=== PATIENT | male | born 1945 | race Caucasian/White ===

== ENCOUNTER 2021-02-13 08:09 | Outpatient (CLI) | payer MEDICARE, SELFPAY ==
--- NOTE | 2021-02-13 11:46 | WPDSIXMINUTE ---
Six Minute Walk Procedure Procedure Performed Pulmonary Stress Test (6 min walk) Six Minute Walk This is a 6 minutes walk test. The test was performed and interpreted in accordance with the 2014 ERS/ATS task force guidelines. the test was performed on the patient's home setting of 2 L oxygen nasal cannula. Findings: The patient's resting saturation on 2 L NC measured by pulse oximetry was 96% and her heart rate was 67 bpm. Patient ambulated for 122 meters and oxygen saturation remained 94 to 98%. Heart rate at the end of the study was 95 bpm. There are no prior studies for comparison.
== END 2021-02-13 08:10 | disposition home or self-care (01) ==
PROVIDERS: PCP Internal Medicine; Visit Provider Nurse Practitioner Family
DX: R09.02 Hypoxemia (principal)
CPT/HCPCS: 94618

== ENCOUNTER 2021-06-21 14:30 | Outpatient (RCR) | payer MEDICARE, SELFPAY ==
[2021-04-13 10:16] VITALS: BMI 40.6
[2021-04-13 10:21] VITALS: BMI 40.6
== END 2021-07-03 10:24 | disposition home or self-care (01) ==
LOC: ANHDMC 14:30
PROVIDERS: PCP Internal Medicine; Visit Provider Internal Medicine
DX: E11.9 Type 2 diabetes mellitus without complications (principal); Z71.3 Dietary counseling and surveillance; Z71.89 Other specified counseling
CPT/HCPCS: 97802; 99199; G0108; G0109

== ENCOUNTER 2021-08-22 12:57 | Outpatient (RCR) | payer MEDICARE, SELFPAY | END 2021-08-22 14:57 | disposition home or self-care (01) | LOC: ANHDMC 12:57 | PROVIDERS: PCP Internal Medicine; Visit Provider Internal Medicine | DX: E11.9 Type 2 diabetes mellitus without complications (principal); Z71.89 Other specified counseling | CPT/HCPCS: G0108 ==

== ENCOUNTER → 2021-08-26 08:42 | Outpatient (CLI) | payer MEDICARE, SELFPAY ==
--- NOTE | ~2021-08-26 | MR_ITS ---
EXAMINATION: MR thoracic spine wo con EXAM DATE: 08/26/2021 12:06 INDICATION: chronic thoracic back pain, no trauma, no ca. TECHNIQUE: Multi-sequential, multiplanar MR images of the thoracic spine were obtained without contra st. Sagittal T1, T2, T2 fat saturation, axial T2 weighted images reviewed. There is no prior study for comparison. FINDINGS: There is mild to moderate mid thoracic dextroscoliosis. There is moderate to severe loss of mid thoracic disc height, moderate loss of lower thoracic disc height. Mild diffuse loss of vertebra l body height. The spinal cord signal intensity and intrinsic morphology is normal. There are no susp icious marrow signal abnormalities. Paraspinal soft tissue is unremarkable. Mild to moderate overall thoracic facet arthropathy. There are small disc bulges and protrusions at most of the levels, some i ndent the anterior aspect of the spinal cord but there is no cord edema suspected. No more than mild central canal stenosis at any given level. No evidence of discitis or osteomyelitis. Motion limiting axial images, level by level evaluation. There is moderate T8-9 and T10-11. These are the most narrowed levels of the thoracic spine. IMPRESSION: 1. Overall moderate thoracic spondylosis. 2. Mild to moderate dextroscoliosis. Reviewed, dictated and finalized at location . TYPE MECHANIC
== END ==
PROVIDERS: Visit Provider Nurse Practitioner Adult Health
DX: M54.6 Pain in thoracic spine (principal); M47.814 Spondylosis without myelopathy or radiculopathy, thoracic region; M41.84 Other forms of scoliosis, thoracic region
CPT/HCPCS: 72146

== ENCOUNTER 2022-01-11 14:15 | Outpatient (CLI) | payer MEDICARE, SELFPAY ==
[2022-01-11 14:47] LABS: Basophils Percent Auto 0.5 % (0.2-1.2); Eosinophils Absolute Auto 0.3 K/mm3 (0-0.3); Eosinophils Percent Auto 4.1 % (0-4.4); Hematocrit 34.3 % (42.0-52.0); Hemoglobin 10.7 g/dL (14.0-18.0); Immature Granulocyte Absolute 0.01 K/mm3 (0.00-0.031); Immature Granulocyte Percent A 0.1 % (0-0.5); Lymphocytes Absolute Auto 2.86 K/mm3 (0.9-3.2); Lymphocytes Percent Auto 35.9 % (18.3-44.2); Mean Corpuscular HGB Conc 31.2 g/dl (32-36); Mean Corpuscular Volume 96.1 fl (80-100); Mean Platelet Volume 9.5 fl (7.4-10.4); Monocytes Absolute Auto 0.7 K/mm3 (0.1-0.6); Monocytes Percent Auto 8.7 % (2.6-8.5); Neutrophils Percent Auto 50.7 % (45.5-73.1); Platelet Count Result 242 k/mm3 (150-375); Red Blood Count 3.57 M/mm3 (4.6-6.20); Red Cell Distribution Width 14.6 % (11.5-14.5)
[2022-01-11 14:49] LABS: Add Urine Microscopic? YES; Appearance Urine Clear (Clear); Bilirubin Urine Negative (Negative); Blood Urine Negative (Negative); Color Urine Yellow (Yellow); Glucose Urine UA Negative (Negative); Ketones Urine Negative (Negative); Leukocyte Esterase Ur Trace LEU/UL (Negative); Nitrate Urine Negative (Negative); Protein Urine Negative (Negative); Urobilinogen Urine 0.2 mg/dL (<2.0); pH Urine 5.5 (5.0-9.0)
--- NOTE | 2022-01-11 15:05 | ECG_ITS ---
Measurements Intervals [place] Rate: 79 P: 43 LA: 186 QRS: -59 QRSD: 161 T: 53 QT: 402 QTc: 463 Interpretive Statements SINUS RHYTHM LEFTWARD AXIS RIGHT BUNDLE BRANCH BLOCK [120+ ms QRS DURATION, UPRIGHT V1, 40+ ms S IN I/aVL/V4/V5/V6] LEFT ANTERIOR FASCICULAR BLOCK [QRS AXIS <= -45, QR IN I, RS IN II] ABNORMAL ECG NO PREVIOUS ECG AVAILABLE FOR COMPARISON Electronically Signed On 01-12-2022 16:34:29 CDT by Pastor Bear M.D.
[2022-01-11 15:08] LABS: Bacteria Urine Trace /hpf; Mucus Urine Rare /lpf; RBC Urine 0-2 /hpf (0-2); Squamous Epithelial Cell Urine Occasional /hpf (Few)
[2022-01-11 15:15] LABS: Anion Gap 7 mmol/L (8-16); Blood Urea Nitrogen 15 mg/dL (9-20); Calcium 8.5 mg/dL (8.4-10.2); Carbon Dioxide 29 mmol/L (22-30); Chloride 102 mmol/L (98-107); Estimated Glomerular Filt Rate > 60; Glucose 82 mg/dL (65-110); Potassium 4.2 mmol/L (3.4-5.0); Sodium 138 mmol/L (137-145)
[2022-01-11 15:24] LABS: Erythrocyte Sedimentation Rate 42 mm/hr (0-20)
== END 2022-01-11 14:16 | disposition home or self-care (01) ==
PROVIDERS: PCP Internal Medicine; Visit Provider Nurse Practitioner Family
DX: Z01.818 Encounter for other preprocedural examination (principal); I45.2 Bifascicular block
CPT/HCPCS: 36415; 80048; 81001; 85025; 85652; 86140; 93005

== ENCOUNTER 2024-03-02 09:16 | Outpatient (CLI) | payer MEDICARE, SELFPAY ==
--- NOTE | 2024-03-02 09:44 | ECG_ITS ---
Test Date: 2024-03-02 09:56:20 Measurements Intervals [place] Rate: 77 P: 18 IA: 174 QRS: -81 QRSD: 156 T: -9 QT: 405 QTc: 460 Interpretive Statements SINUS RHYTHM RIGHT BUNDLE BRANCH BLOCK [120+ ms QRS DURATION, UPRIGHT V1, 40+ ms S IN I/aVL/V4/V5/V6] LEFT ANTERIOR FASCICULAR BLOCK [QRS AXIS <= -45, QR IN I, RS IN II] ABNORMAL ELECTROCARDIOGRAM No previous ECG available for comparison Electronically Signed On 03-02-2024 12:35:09 CDT by Pastor Bear M.D.
== END 2024-03-02 09:17 | disposition home or self-care (01) ==
LOC: ANHSURGERY 09:20
PROVIDERS: PCP Internal Medicine; Visit Provider Urology
DX: Z01.818 Encounter for other preprocedural examination (principal); E11.9 Type 2 diabetes mellitus without complications; I10 Essential (primary) hypertension
CPT/HCPCS: 93005

== ENCOUNTER 2024-03-03 01:42 | Day surgery (SDC) | payer MEDICARE, SELFPAY ==
[2024-02-28 08:58] VITALS: BMI 34.2
--- NOTE | 2024-02-28 09:39 | PC.NURSE ---
Report to the Outpatient Waiting Room, entrance under the green pavilion located off [facility], at time __8:00AM on date __03/03/24 . Planned Procedure Time: _10:00AM . Time changes happen often and if your time is changed the preop area will call you the afternoon before. - You and your visitor will be asked to self-screen and do not enter if you have any COVID symptoms. - A mask is optional within the hospital at this time. Patients may have clear liquids (water, carbonated beverages, clear teas, apple juice) until 3 hours prior to surgery with a maximum of 20 ounces. - No food from midnight until time of surgery. Take the following medications with a SIP of water the morning of surgery: _BREO ELLIPTA AND SPIRIVA INHALERS. MAY USE ALBUTEROL INHALER NEEDED. MORNING OF SURGERY TAKE: BUPROPION(WELLBUTRIN), DOXAZOSIN(CARDURA), ESCITALOPRAM(LEXAPRO), GABAPENTIN, NEBIVOLOL(BYSTOLIC), OXYCODONE(XTAMPZA). DO NOT STOP ANY OF YOUR OTHER PRESCRIPTION MEDICATIONS PRIOR TO SURGERY ?EXCEPT THE FOLLOWING Medications to discontinue per physician ___HOLD XERALTO & PLAVIX 5 DAYS PRE-OP PER DR ORTIZ/PER PATIENT- LAST DOSE 02/26/24 HOLD ALL VITAMINS/SUPPLEMENTS 3 DAYS PRE-OP PER ANESTHESIA- LAST DOSE 02/28/24. Date to take last dose Please no make-up, nail omani, hairspray, perfume, deodorant, or body powder the day of surgery. No jewelry (including any body piercings) or valuables the day of surgery, leave them at home. Please take a shower or bath the night before, or the morning of, surgery with an antibacterial soap. Wear comfortable, loose fitting clothing. - Jewelry must be removed prior to entering the operating room. Rings and piercings that are not removed may be cut off. - The hospital will not accept responsibility for valuables. - Please leave all valuables, including medications, at home the day of surgery. If you are going home after surgery, a licensed transfer driver must drive you home. - NO public transportation without another adult if you receive anesthesia. - We recommend that an adult stay with you for 24 hours following discharge. - We also recommend that you do not drive, make important decision, drink alcoholic beverages, or take any drugs that were not prescribed by your health care provider for at least 24 hours after your discharge time. Follow any additional instructions given to you from your surgeon. If you or anyone in your household have experienced Covid symptoms in the past week, please notify your surgeon or the nurse liaison at the phone number below for possible testing. Telephone instructions given to ____PATIENT and asked if any additional questions and then verbalized understanding. Patient advised to call surgeon office or pre surgery nurse liaison [phone] if any additional questions.
[2024-03-03 08:30] VITALS: BP 104/55; PULSE 91; RESP 14; TEMP 36.1; O2SAT 94
[2024-03-03] MEDS: LACTATED RINGERS 1,000 ML 30 ML IV CONT (08:30)
--- NOTE | 2024-03-03 08:32 | PM.IMHP ---
H&P: HPI History of Present Illness Date/Time: 03/03/24 08:32 Chief Complaint: Scrotal lesion Narrative: 78-year-old male who has this unusual separation of skin with some underlying granulation tissue in the midline inferior aspect of the scrotum. This his measures approximately 1 centimeter/millimeters. It has failed to heal with conservative management. He is now here for excision. Review of Systems Review of Systems: All systems reviewed & are unremarkable except as noted in HPI and below PMFSH Past Medical History Medical History Anxiety CAD (coronary artery disease) Depression Diabetes mellitus DJD (degenerative joint disease) Gout HTN (hypertension) Obesity PAD (peripheral artery disease) Surgical History Surgical History History of knee replacement Hx of cardiac cath 2007 w/stentx2 Hx of cholecystectomy Family History Family History Father Family history of cardiovascular disease Social History Social History Smoking packs per day: 2 Smoking cigarettes per day: 40.0 Years smoked: 25 Smoking pack-years: 50.00 Smoking status: Former smoker Tobacco type: cigarettes and cigars Smoking end date: 07/24/83 Additional smoking assessment comments: SMOKES OCCASSIONAL CIGAR Living arrangements: alone Spiritual care concerns: No Meds Home Medications and Allergies Home Medications Medication Instructions Recorded Confirmed Type allopurinol 300 mg tablet 300 mg PO DAILY 03/14/20 02/28/24 History baclofen 10 mg tablet 10 mg PO BID 03/14/20 02/28/24 History doxazosin 8 mg tablet (Cardura) 8 mg PO DAILY 03/14/20 02/28/24 History escitalopram oxalate 20 mg tablet 20 mg PO DAILY 03/14/20 02/28/24 History gabapentin 400 mg capsule 400 mg PO 4-6XD 03/14/20 02/28/24 History lisinopril 2.5 mg tablet 2.5 mg PO DAILY 03/14/20 02/28/24 History nebivolol 5 mg tablet (Bystolic) 5 mg PO DAILY 03/14/20 02/28/24 History pentoxifylline 400 mg 400 mg PO BID 03/14/20 02/28/24 History tablet,extended release rivaroxaban 2.5 mg tablet (Xarelto) 2.5 mg PO BID 03/14/20 02/28/24 History rosuvastatin 10 mg tablet (Crestor) 10 mg PO DAILY 03/14/20 02/28/24 History travoprost 0.004 % eye drops 1 drop ophthalmic (eye) QPM 03/14/20 02/28/24 History (Travatan Z) semaglutide 0.25 mg or 0.5 mg (2 0.5 mg subcut WEEKLY 05/04/21 02/28/24 History mg/1.5 mL) subcutaneous pen injector (Ozempic) albuterol sulfate 90 mcg/actuation See Rx Instructions .Route 01/29/22 02/28/24 Rx aerosol inhaler .COMPLEX #8.5 grams fluticasone furoate 100 See Rx Instructions .Route 05/02/23 02/28/24 Rx mcg-vilanterol 25 mcg/dose .COMPLEX 90 days #180 ea inhalation powder (Breo Ellipta) tiotropium bromide 2.5 See Rx Instructions .Route 10/07/23 02/28/24 Rx mcg/actuation mist for inhalation .COMPLEX #12 grams (Spiriva Respimat) B.animalis-B.bifidum-B.infantis-B.longum 1 tablet PO DAILY 02/28/24 02/28/24 History 10 mg-15 mg tablet,delay rel (Probiotic 4X) bupropion HCl 150 mg tablet,12 hr 150 mg PO BID 02/28/24 02/28/24 History sustained-release clopidogrel 75 mg tablet 75 mg PO DAILY 02/28/24 02/28/24 History cyanocobalamin (vitamin B-12) 5,000 mcg PO DAILY 02/28/24 02/28/24 History 5,000 mcg capsule docusate sodium 100 mg capsule 100 mg PO BID 02/28/24 02/28/24 History insulin glargine U-300 conc 300 60 unit subcut QACLUNCH 02/28/24 02/28/24 History unit/mL (1.5 mL) subcutaneous pen (Toujosefao SoloStar U-300 Insulin) oxycodone myristate 18 mg capsule 12 mg PO BID 02/28/24 02/28/24 History sprinkle extended release 12hr(DON'T CRUSH) (Xtampza ER) tamsulosin 0.4 mg capsule 0.4 mg PO DAILY 02/28/24 02/28/24 History Allergies Allergy/AdvRea
--- NOTE | 2024-03-03 08:34 | WPDHPUPDATE1 ---
History and Physical Update Update Date/Time: 03/03/24 08:34 History and Physical has been reviewed, including an updated exam of the patient. There are NO changes in the patient's condition. Risks, benefits, and alternatives have been discussed and questions answered. Patient agrees to proceed with procedure.
[2024-03-03 09:13] LABS: Glucose Point of Care 83 mg/dl (65-105)
--- NOTE | 2024-03-03 10:12 | WPDANESEPPF ---
Anes - Initial Pre Proc Eval Procedure: Operation Date: 03/03/24 09:45 Proposed Procedures p Excision of Scrotal Lesion - Tavo Pedro MD Date/Time: 03/03/24 10:12 Surgeon: Tavo Pedro MD Pre Op Diagnosis: scrotal lesion Patient Data Age: 78 Gender: M Height: 1.75 m Weight: 100 kg Last Vital Signs Temp 96.9 F L 03/03/24 08:30 Pulse 91 03/03/24 08:30 Resp 14 03/03/24 08:30 BP 104/55 L 03/03/24 08:30 Pulse Ox 94 03/03/24 08:30 O2 Del Method Room Air 03/03/24 08:30 Allergies Allergy/AdvReac Type Severity Reaction Status Date / Time cephalexin AdvReac Severe DIARRHEA,GI Verified 03/03/24 09:26 UPSET Home Medications Medication Instructions Recorded Confirmed Type allopurinol 300 mg tablet 300 mg PO DAILY 03/14/20 02/28/24 History baclofen 10 mg tablet 10 mg PO BID 03/14/20 02/28/24 History doxazosin 8 mg tablet (Cardura) 8 mg PO DAILY 03/14/20 02/28/24 History escitalopram oxalate 20 mg tablet 20 mg PO DAILY 03/14/20 03/03/24 History gabapentin 400 mg capsule 400 mg PO 4-6XD 03/14/20 03/03/24 History lisinopril 2.5 mg tablet 2.5 mg PO DAILY 03/14/20 02/28/24 History nebivolol 5 mg tablet (Bystolic) 5 mg PO DAILY 03/14/20 03/03/24 History pentoxifylline 400 mg 400 mg PO BID 03/14/20 02/28/24 History tablet,extended release rivaroxaban 2.5 mg tablet (Xarelto) 2.5 mg PO BID 03/14/20 03/03/24 History rosuvastatin 10 mg tablet (Crestor) 10 mg PO DAILY 03/14/20 02/28/24 History travoprost 0.004 % eye drops 1 drop ophthalmic (eye) QPM 03/14/20 02/28/24 History (Travatan Z) semaglutide 0.25 mg or 0.5 mg (2 0.5 mg subcut WEEKLY 05/04/21 02/28/24 History mg/1.5 mL) subcutaneous pen injector (Ozempic) albuterol sulfate 90 mcg/actuation See Rx Instructions .Route 01/29/22 02/28/24 Rx aerosol inhaler .COMPLEX #8.5 grams fluticasone furoate 100 See Rx Instructions .Route 05/02/23 02/28/24 Rx mcg-vilanterol 25 mcg/dose .COMPLEX 90 days #180 ea inhalation powder (Breo Ellipta) tiotropium bromide 2.5 See Rx Instructions .Route 10/07/23 02/28/24 Rx mcg/actuation mist for inhalation .COMPLEX #12 grams (Spiriva Respimat) B.animalis-B.bifidum-B.infantis-B.longum 1 tablet PO DAILY 02/28/24 02/28/24 History 10 mg-15 mg tablet,delay rel (Probiotic 4X) bupropion HCl 150 mg tablet,12 hr 150 mg PO BID 02/28/24 03/03/24 History sustained-release clopidogrel 75 mg tablet 75 mg PO DAILY 02/28/24 03/03/24 History cyanocobalamin (vitamin B-12) 5,000 mcg PO DAILY 02/28/24 02/28/24 History 5,000 mcg capsule docusate sodium 100 mg capsule 100 mg PO BID 02/28/24 02/28/24 History insulin glargine U-300 conc 300 60 unit subcut QACLUNCH 02/28/24 02/28/24 History unit/mL (1.5 mL) subcutaneous pen (Toujeo SoloStar U-300 Insulin) oxycodone myristate 18 mg capsule 12 mg PO BID 02/28/24 02/28/24 History sprinkle extended release 12hr(DON'T CRUSH) (Xtampza ER) tamsulosin 0.4 mg capsule 0.4 mg PO DAILY 02/28/24 02/28/24 History Laboratory Tests 03/03/24 09:11 POC Capillary Glucose 83 mg/dl (65-105) Patient hx anesthesia problems: none Family hx anesthesia problems: none Results Review: All pre-operative results and documents have been reviewed as part of the pre-operative evaluation. [facility] Past Medical History Medical History Anxiety CAD (coronary artery disease) Depression Diabetes mellitus DJD (degenerative joint disease) Gout HTN (hypertension) Obesity PAD (peripheral artery disease) Surgical History Surgical History History of knee replacement Hx of cardiac cath 2007 w/stentx2 Hx of cholecystectomy Family History Family History Father Family history of cardiovascular disease Social History Social History (Rev
[2024-03-03] MEDS: levoFLOXacin 500 MG/D5W 100 ML 500 MG/100 ML BAG 100 MG IVPB (10:55)
[2024-03-03] MEDS: BUPivacaine HCL 0.5% 10 ML AMP 30 ML INFILTRATE (10:57)
[2024-03-03 11:08] VITALS: BP 85/55; PULSE 70; RESP 15; TEMP 36.3; O2SAT 100
[2024-03-03 11:14] LABS: Glucose Point of Care 73 mg/dl (65-105)
--- NOTE | 2024-03-03 11:14 | W.PM.PROC2 ---
Procedure Note - Detailed Date of Procedure 03/03/24 Pre-op Diagnosis scrotal lesion Post-op Diagnosis Same Procedure Performed Excision of scrotal lesion 1.3 cm by 4 mm Surgeon Tavo Pedro MD Anesthesia General Description of Procedure Patient is taken the operative suite correctly identified. Once anesthesia was obtained I also did a local anesthesia with 0.5% Marcaine. He had an elliptical lesion that was poorly healing with separation of the skin. It measured approximately 1.3 x 0.4 cm . On elliptical incision/excision was used. The area in question was taken down to the base. There was no fistulous communications noted. It appears if it is a poorly healing ulcerated area. The skin edges were then reapproximated using 3-0 chromic in interrupted fashion. Antibiotic ointment was placed and patient was taken recovery stable condition. He will follow up in about 3-4 weeks time. This completes dictation. Please send a copy of op note to my office. Estimated Blood Loss 0 Drains No Packing No Pathology Yes Complications No immediate complications Condition Stable Disposition PACU
[2024-03-03 11:20] VITALS: BP 91/56; PULSE 74; RESP 16; O2SAT 98
[2024-03-03 11:35] VITALS: BP 82/50; PULSE 74; RESP 16; O2SAT 98
[2024-03-03 11:55] VITALS: BP 90/53; PULSE 79
[2024-03-03 12:25] VITALS: BP 105/49; PULSE 74
--- NOTE | 2024-03-03 12:39 | SUR.PHASEII ---
Dr. Pedro said patient may resume blood thinners tomorrow.
== END 2024-03-03 12:53 | disposition home or self-care (01) ==
PROVIDERS: PCP Internal Medicine; Visit Provider Urology
PROC: (CPT 54060; principal; 2024-03-03 09:45)
DX: N50.89 Other specified disorders of the male genital organs (principal); I25.10 Atherosclerotic heart disease of native coronary artery without angina pectoris; I10 Essential (primary) hypertension; E11.51 Type 2 diabetes mellitus with diabetic peripheral angiopathy without gangrene; F41.9 Anxiety disorder, unspecified; F32.A Depression, unspecified; M10.9 Gout, unspecified; E66.9 Obesity, unspecified; Z68.32 Body mass index [BMI] 32.0-32.9, adult; Z95.5 Presence of coronary angioplasty implant and graft; Z72.0 Tobacco use; Z79.01 Long term (current) use of anticoagulants; Z79.85 Long-term (current) use of injectable non-insulin antidiabetic drugs; Z79.51 Long term (current) use of inhaled steroids; Z79.02 Long term (current) use of antithrombotics/antiplatelets; Z79.4 Long term (current) use of insulin
CPT/HCPCS: 11422; 82948; 88305; 88312; A9270; J1956; J2405; J2704; J3010; J7120

== ENCOUNTER 2024-05-18 13:12 | Outpatient (CLI) | payer MEDICARE, SELFPAY ==
--- NOTE | ~2024-05-18 | XR_ITS ---
Clinical Indication: Shortness of breath PA and lateral views of the chest: Comparison: 06/26/2012 Findings: The lungs are clear, without evidence of focal consolidation or pleural effusion. Cardiome diastinal silhouette is within normal limits. Bones and soft tissues are unremarkable. Intrathecal ne urostimulator present. Impression: Clear lungs. Reviewed, dictated and finalized at location . Impression: Clear lungs.
== END 2024-05-18 13:13 | disposition home or self-care (01) ==
PROVIDERS: PCP Internal Medicine; Visit Provider Nurse Practitioner Family
DX: R06.02 Shortness of breath (principal)
CPT/HCPCS: 71046

== ENCOUNTER 2024-07-01 07:23 | Outpatient (RCR) | payer MEDICARE, SELFPAY ==
[2024-05-01 10:17] VITALS: BMI 33.6
== END 2024-07-30 23:59 | disposition home or self-care (01) ==
LOC: ANHWOC 07:23
PROVIDERS: PCP Internal Medicine; Visit Provider Urology
DX: N50.9 Disorder of male genital organs, unspecified (principal)
CPT/HCPCS: 99213; A9270; G0463